=== PATIENT | female | born 1965 | race Caucasian/White ===

== ENCOUNTER 2018-01-22 14:32 | Emergency (ER) | payer OTHER ==
[~2018-01-22] VITALS: Ht 160 cm; Wt 83.3 kg
[~2018-01-22 14:32] MED LIST: ADVAIR 500/501 DISK; ADVAIR 500/501 DISK IH; ALBUTEROL; ALLEGRA60 MG PO; ALLI60 MG PO; AMITRIPTYLINE H25 MG; ATORVASTATIN 20 MG T; CITALOPRAM HBR20 MG; COLACE50 MG PO; CYMBALTA60 MG; EC-NAPROSYN500 MG PO; FLUCONAZOLE150 MG; GLUCOSAMINE H1500 MG PO; HYCAMTIN PO; LANSOPRAZOLE30 MG; LIPITOR20 MG PO; METHADONE10 MG; METHADONE10 MG PO; METHOCARBAMOL; METHOCARBAMOL750 MG; NORTRIPTYLINE H25 MG; OMNARIS12.5 GM; PREVACID15 M1 PO; Q 10; SEASONALE1 EACH PO; SYNTHROID125 MCG; SYNTHROID125 MCG PO; TOPIRAMATE200 MG; [UNRECOGNIZED DRUG - OTHER]
[2018-01-22 17:09] LABS: BASOPHIL (%) 1.1 % (0-1); BASOPHIL COUNT 0.1 K/uL (0-0.1); EOSINOPHIL (%) 0.9 % (0-5); EOSINOPHIL COUNT 0.1 K/uL (0-0.3); HEMATOCRIT 41.1 % (36.0-46.0); HEMOGLOBIN 14.3 G/DL (11.9-15.5); IMMATURE GRANULOCYTE (%) 0.3 % (0.0-0.7); LYMPHOCYTE (%) 45.6 % (15-42); MCHC 34.8 G/DL (30.0-36.0); MCV 86.3 FL (83-99); MONOCYTE (%) 6.6 % (3-12); MONOCYTE COUNT 0.4 K/uL (0-0.8); NEUTROPHIL (%) 45.5 % (45-76); NEUTROPHIL COUNT 2.9 K/uL (1.8-6.4); PLATELET COUNT 221 K/uL (156-360); RBC DIS.WIDTH-CV 11.6 % (11.8-14.6); RBC DIS.WIDTH-SD 36.8 % (39-53); RED BLOOD COUNT 4.76 M/uL (3.80-5.20); WHITE BLOOD COUNT 6.5 K/uL (4.1-10.2)
[2018-01-22 17:35] LABS: CHLORIDE 104 MEQ/L (99-109); SODIUM 138 MEQ/L (136-147)
[2018-01-22 17:40] LABS: CREATININE 1.1 MG/DL (0.6-1.3); GFR ESTIMATE (CALCULATED) 55 mL/min/; GLUCOSE 115 mg/dL (70-99); UREA NITROGEN (BUN) 16 mg/dL (9-23)
[2018-01-22] MEDS ORDERED: ZOFRAN ODT4 MG PO (20:18)
[2018-01-22] MEDS ORDERED: NAPROSYN500 MG PO (20:18)
[2018-01-22 20:54] VITALS: BP 101/56
== END 2018-01-22 21:08 | disposition home or self-care (01) ==
LOC: EME 14:32
PROVIDERS: Emergency Medicine
DX: H57.12 Ocular pain, left eye (principal); R51 Headache; R11.2 Nausea with vomiting, unspecified; R42 Dizziness and giddiness; H53.149 Visual discomfort, unspecified; J45.909 Unspecified asthma, uncomplicated; E78.5 Hyperlipidemia, unspecified; E03.9 Hypothyroidism, unspecified; Z88.0 Allergy status to penicillin
CPT/HCPCS: 70496; 80048; 85025; 99281; 99285; J0780; J1100; J1200; J1885; J7040